=== PATIENT | female | born 1995 | race Caucasian/White ===

== ENCOUNTER 2025-07-08 11:38 | Emergency (ER) | payer OTHER, SELFPAY ==
--- OUTSIDE RECORDS SUMMARY | 2025-07-08 11:49 | XMS_ITS | Clinical Summary ---
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 Overview (01/04/2017): Left anterior chest Family History Medical History Relation Comments Hypertension Father Cancer Maternal Grandfather thyroid Heart Disease Maternal Grandfather Hyperlipidemia Maternal Grandfather Other Maternal Grandfather Polycythemi a Thyroid Disease Maternal Grandfather Fainting Maternal Grandmother Hyperlipidemia Maternal Grandmother Hypertension Maternal Uncle Anemia Mother Fainting Mother Hypertension Mother Thyroid Disease Mother Relation Status Comments Father Maternal Grandfather Maternal Grandmother Maternal Uncle Mother Social History Tobacco Use Types Packs/Day Years Used Date Smoking Tobacco: Never Smokeless Tobacco: Never Alcohol Use Standard Drinks/Week Comments No 0 (1 standard drink = 0.6 oz pur e alcohol) Comments Unknown Sex and Gender Information Value Date Recorded Sex Assigned at Not on file Legal Sex Female 4:42 PM PDT Gender Identity Not on file Sexual Orientation Not on file Last Filed Vital Signs Vital Sign Reading Time Taken Comments Blood Pressure 121/73 01/25/2017 8:43 AM PDT Pulse 82 01/25/2017 8:43 AM PDT Temperature 36 C (96.8 F) 01/25/2017 8:43 AM PDT Respiratory Rate - - Oxygen Saturation 100% 01/25/2017 8:43 AM PDT Inhaled Oxygen Concentration - - Weight 129.9 kg (286 lb 6.4 oz) 01/25/2017 8:43 AM PDT Height 188 cm (6' 2.02) 01/25/2017 8:43 AM PDT Body Mass Index 36.76 01/25/2017 8:43 AM PDT Plan of Treatment Not on file Insurance [facility] [employer] Care Teams Tobacco Packer Relationship Specialty Start Date End Date Dima Zhao MD PCP - General Family Practice 01/09/17 Everardo Mendoza MD merchandising team lead Obstetrics-Gynecology 01/04/17
[2025-07-08 12:27] VITALS: BP 155/91; PULSE 59; RESP 18; TEMP 37.1; O2SAT 100; BMI 27.1
--- NOTE | 2025-07-08 12:37 | DI.RAD.S_ITS ---
PROCEDURE: XR CHEST 1V INDICATIONS: Chest Pain TECHNIQUE: One view of the chest was acquired. COMPARISON: None. FINDINGS AND IMPRESSION: On this single view study, no airspace consolidation or pleural effusion is seen. Normal heart size. Unremarkable osseous structures. Dictated by: Torrey Cheng M.D. on 07/08/2025 at 13:50 Approved by: Torrey Cheng M.D. on 07/08/2025 at 13:51
--- NOTE | 2025-07-08 12:43 | EKG_ITS ---
[address] [address] [address], [place] [address] Test Date: 2025-07-08 Pat Name: Zaria Guerrero Department: Room: Gender: Female [employer] Gauger: REMEDIOS : 1995 Requested By: Order Number: [id number] Reading MD: Arya Aguilar Measurements Intervals Smoot Rate: 55 P: 60 NH: 164 QRS: 62 QRSD: 84 T: 48 QT: 428 QTc: 409 Interpretive Statements Sinus bradycardia with sinus arrhythmia Electronically Signed On 07-09-2025 15:04:40 PST by Arya Aguilar
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
[2025-07-08 13:42] LABS: Add Manual Diff / Slide Review NO; Hematocrit 42.0 % (36-46); Hemoglobin 14.2 g/dL (12.0-16.0); Lymphocytes Absolute Auto 2000 /uL (1100-4500); Mean Corpuscular HGB Conc 33.8 % (30-36); Mean Corpuscular Hemoglobin 27.0 PG (26-34); Mean Corpuscular Volume 79.7 fL (80-100); Platelet Count 275 X10^3/uL (150-400)
[2025-07-08 13:50] LABS: INR 0.9 (0.9-1.3); Prothrombin Time 10.7 SECONDS (9.4-12.5)
[2025-07-08 13:53] LABS: PTT Partial Thromboplastin Tim 30 SECONDS (25.1-36.5)
--- NOTE | 2025-07-08 13:53 | DI.CT.S_ITS ---
PROCEDURE: CT ANGIO HEAD AND NECK INDICATIONS: PORRAS near syncope TECHNIQUE: After the administration of intravenous contrast, 1 mm thick sections acquired from the aortic arch through the [place] of [place]. 3-dimensional qliqram-rnmitjyzr-fodgjxtdnc (MIP) and/or volume rendering reformats were acquired of the central intracranial vasculature and neck separately. For radiation dose reduction, the following was used: automated exposure control, adjustment of mA and/or kV according to patient size. COMPARISON: None. 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 ICAs: Patent ECAs: Patent origins Vertebral arteries: Patent Soft tissues: No significant mass, aneurysm, or lymphadenopathy Lung apices: No lung apex pneumothorax. Bones: No aggressive appearing osseous abnormality. IMPRESSION: No large vessel occlusion or high-grade stenosis. Consider MRI if there is high concern for infarction. Any quantitative measurements of stenosis were performed using NASCET criteria. Dictated by: Torrey Cheng M.D. on 07/08/2025 at 14:13 Approved by: Torrey Cheng M.D. on 07/08/2025 at 14:18
[2025-07-08 13:54] LABS: Alanine Aminotransferase 27 IU/L (<35); Albumin 4.9 g/dL (3.5-5.0); Albumin Globulin Ratio 1.4 (1.0-2.8); Alkaline Phosphatase 75 U/L (38-126); Blood Urea Nitrogen 10 mg/dL (7-17); Calcium 9.4 mg/dL (8.4-10.2); Carbon Dioxide 25 mmol/L (22-32); Chloride 105 mmol/L (98-107); Creatine Kinase 103 U/L (30-135); Estimated Glomerular Filt Rate > 60 mL/min (>60); Globulin 3.4 g/dL (1.7-4.1); Glucose 79 mg/dL (70-99); HEMOLYSIS 23 (0-50); Lipase 201 U/L (23-300); Magnesium 2.2 mg/dL (1.6-2.3); Potassium 3.9 mmol/L (3.4-5.1); Sodium 139 mmol/L (137-145); Total Protein 8.3 g/dL (6.3-8.2)
[2025-07-08 14:06] LABS: NT-proBNP (BNP-Adult 18+) < 20 pg/mL (<125); Troponin I < 0.012 ng/mL (0.01-0.034)
[2025-07-08] MEDS: SODIUM CHLORIDE 0.9% 1,000 ML 1000 ML IV (14:32)
[2025-07-08] MEDS: ONDANSETRON 4 MG/2 ML INJ IV (14:32)
[2025-07-08 15:58] VITALS: BP 175/96; PULSE 67; RESP 18; O2SAT 100
--- NOTE | 2025-07-08 15:59 | PC.NURSE ---
Patient evaluated, treated, and discharged by provider prior to nursing assessment.
== END 2025-07-08 15:58 | disposition home or self-care (01) ==
PROVIDERS: Emergency Medicine; Emergency Provider Physician Assistant; PCP Family Medicine
DX: S09.90XA Unspecified injury of head, initial encounter (principal); R55 Syncope and collapse; R51.9 Headache, unspecified; H53.8 Other visual disturbances; X58.XXXA Exposure to other specified factors, initial encounter
CPT/HCPCS: 70450; 70496; 70498; 71045; 80053; 82550; 83690; 83735; 83880; 84484; 85025; 85610; 85730; 93005; 96374; 99283; 99284; J2405; J7030; Q9967